=== PATIENT | female | born 1985 | race Caucasian/White ===

== ENCOUNTER 2017-03-25 03:19 | Emergency (ER) | payer SELFPAY ==
[~2017-03-25] VITALS: Ht 175.3 cm; Wt 63.5 kg
[2017-03-25 03:40] VITALS: BP 130/80
[2017-03-25] MEDS ORDERED: LORazepam 1mg tab ORAL ONE (03:45)
--- NOTE | 2017-03-25 03:58 | Emergency Room Report ---
History of Present Illness General Chief Complaint: Substance Abuse Source: Patient Present Illness HPI Is a 31-year-old female with no past medical history. She presents with chief complaint of palpitation and anxiety. Onset tonight. She was at a [employer] and had small amount of alcohol. Also smoking a cigarette that was passing around. Afterward she felt palpitations and lightheadedness. [place] her heart beating fast. No fever or chills but no nausea no vomiting. No suicidal thoughts or homicidal thoughts. Allergies: Coded Allergies: No Known Allergies (Unverified , 03/25/17) Patient History Past Medical History: see triage record, old chart reviewed Past Surgical History: none Pertinent Family History: none Social History: Reports: alcohol use - Social Last Menstrual Period: feb 02 Now: No Immunizations: other Reviewed Nursing Documentation: PMH: Agreed, PSxH: Agreed Nursing Documentation-PMH Past Medical History: No Stated History Review of Systems Eye: Denies: eye pain, blurred vision ENT: Denies: ear pain, nose congestion, throat swelling Respiratory: Denies: cough, shortness of breath Cardiovascular: Reports: palpitations, Denies: chest pain Gastrointestinal: Denies: abdominal pain, diarrhea, nausea, vomiting Musculoskeletal: Denies: back pain, joint pain Skin: Denies: rash Neurological: Denies: headache, numbness Endocrine: Denies: increased thirst, increased urine Hematologic/Lymphatic: Denies: easy bruising All Other Systems: negative except mentioned in HPI Physical Exam Vital Signs Date Time Temp Pulse Resp B/P (MAP) Pulse Ox O2 Delivery O2 Flow Rate FiO2 03/25/17 03:25 98.4 69 18 138/82 98 Room Air vitals normal Sp02 EP Interpretation: reviewed, normal General Appearance: well appearing, no apparent distress, alert Head: normocephalic, atraumatic Eyes: bilateral eye PERRL, bilateral eye EOMI ENT: hearing grossly normal, normal pharynx Neck: full range of motion, supple, no meningismus Respiratory: chest non-tender, lungs clear, normal breath sounds Cardiovascular #1: regular rate, rhythm, no murmur Gastrointestinal: normal bowel sounds, non tender, no mass, no organomegaly, no bruit, non-distended Musculoskeletal: back normal, gait/station normal, normal range of motion Psychiatric: anxious Skin: warm/dry Medical Decision Making Diagnostic Impression: Primary Impression: Marijuana intoxication Qualified Codes: F12.920 - Cannabis use, unspecified with intoxication, uncomplicated Additional Impression: Anxiety ER Course Patient with anxiety/panic attack after using marijuana. No evidence of severe intoxication. No evidence any sepsis or meningitis. No evidence of PE or dissection. We'll discharge home. Last Vital Signs Date Time Temp Pulse Resp B/P (MAP) Pulse Ox O2 Delivery O2 Flow Rate FiO2 03/25/17 03:40 98.2 78 17 130/80 99 Room Air Status: improved Disposition: HOME, SELF-CARE Condition: Stable Referrals: NOT CHOSEN IPA/,REFERRING (PCP) Additional Instructions: followup with your Dr. in 7 days as needed. Return if worse. DELORES ALLEN M.D. Mar 25, 2017 03:58
[2017-03-25 04:50] VITALS: BP 128/79
[2017-03-25 04:55] VITALS: BP 128/79
== END 2017-03-25 04:55 | disposition home or self-care (01) ==
LOC: EMR 03:37
DX: F12.929 Cannabis use, unspecified with intoxication, unspecified (principal); F41.9 Anxiety disorder, unspecified; R00.2 Palpitations
CPT/HCPCS: 80307; 99283